=== PATIENT | female | born 2000 | race Caucasian/White ===

== ENCOUNTER 2022-02-07 12:01 | Emergency (ER) | payer OTHER | END 2022-02-07 14:12 | disposition home or self-care (01) | LOC: CSHERS 12:01 | DX: L60.0 Ingrowing nail (principal) ==

== ENCOUNTER 2024-10-29 01:48 | Emergency (ER) | payer SELFPAY | END 2024-10-29 02:11 | disposition home or self-care (01) | LOC: CSHERS 01:48 | DX: K21.9 Gastro-esophageal reflux disease without esophagitis (principal); R07.89 Other chest pain | CPT/HCPCS: 93005; 93010; 99284 ==

== ENCOUNTER 2024-11-14 18:35 | Emergency (ER) | payer BC ==
[2024-11-14 19:54] LABS: #Basophils 0.04 10x3/uL (0.0-0.2); #Eosinophils 0.04 10x3/uL (0.0-0.5); #Monocytes 0.62 10x3/uL (0.0-1.1); #Neutrophils 7.09 10x3/uL (1.5-8.4); %Basophils 0.4 % (0.0-2.0); %Eosinophils 0.4 % (0.0-6.0); %Lymphocytes 23.1 % (18.0-47.0); %Monocytes 6.1 % (0.0-10.0); %Neutrophils 69.7 % (40.0-75.0); Hematocrit 34.4 % (34.9-44.5); Hemoglobin 11.6 g/dL (12.0-15.5); Mean Corpuscular Hemoglobin 30.1 pg (27.0-33.0); Mean Corpuscular Volume 89.4 fL (81.6-98.3); Platelet Count 316 10x3/uL (150-450); Red Blood Cell (RBC) Count 3.85 10x6/uL (3.90-5.03); White Blood Cell (WBC) Count 10.17 10x3/uL (3.5-10.5)
[2024-11-14 20:03] LABS: BHCG - Serum Negative (NEGATIVE); Pregs Control Background? CLEAR/WHITE (CLR/WHITE); Pregs Control Bar Appear? YES (CONTROL BAR)
[2024-11-14 20:14] LABS: ALT (SGPT) 13 U/L (Less than 34); AST (SGOT) 19 U/L (11-34); Albumin 4.3 g/dL (3.1-4.5); Alkaline Phosphatase 57 U/L (40-110); Anion Gap 15 mmol/L (10-20); BUN (Urea Nitrogen) 18 mg/dL (7.0-18.7); Bilirubin, Total 0.5 mg/dL (0.3-1.2); Calc. Creatinine Clearance 0 mL/min (70-130); Calcium 9.0 mg/dL (7.8-10.44); Carbon Dioxide 21 mmol/L (22-29); Chloride 108 mmol/L (98-107); Globulin 3.6 g/dL (2.4-3.5); Glucose 83 mg/dL (70-105); Lipase 24 U/L (8-78); Magnesium 2.0 mg/dL (1.6-2.6); Potassium 3.5 mmol/L (3.5-5.1); Sodium 140 mmol/L (136-145)
== END 2024-11-14 20:35 | disposition home or self-care (01) ==
LOC: CSHERS 18:35
DX: R51.9 Headache, unspecified (principal); R11.2 Nausea with vomiting, unspecified; R42 Dizziness and giddiness; R07.89 Other chest pain; T50.995A Adverse effect of other drugs, medicaments and biological substances, initial encounter
CPT/HCPCS: 80053; 83605; 83690; 83735; 84703; 85025; 93005; 96360